=== PATIENT | female | born 1965 | race Caucasian/White ===

== ENCOUNTER → 2016-11-23 | Day surgery (SDC) | payer BC ==
[~2016-11-23] MED LIST: ALEVE220 M1 PO; GLUCOSAMINE500 M1 PO; OMEGA 3 FISH OI1 CAP PO
--- NOTE | ~2016-11-23 | OR ---
Unit #: [id number] #: [id number] Patient: VAMSI LOWRY [id number] [address] [place], [place] [address] [id number] O MR#: [id number] NAME: VAMSI LOWRY ROOM: Date of Procedure: 11/23/2016 Admission Date: 11/23/2016 Surgeon: Qasim Bailon M.D. : 1965 Attending Physician: Qasim Bailon M.D. Primary Care Physician: Bhavin Gilmore M.D. OPERATIVE REPORT PREOPERATIVE DIAGNOSES Low back pain, radiculopathy, spondylolisthesis, degenerative disk disease. POSTOPERATIVE DIAGNOSES Low back pain, radiculopathy, spondylolisthesis, degenerative disk disease. PROCEDURES PERFORMED Lumbar epidural steroid injection with intravenous sedation and fluoroscopic guidance for needle localization. INDICATIONS FOR PROCEDURE The patient is a 51-year-old female with back and right greater than left lower extremity pain that is bad now for almost 2 years. This has not settled with conservative treatment. Workup demonstrated most significantly spondylolisthesis, which was nonmobile, grade 1 to 2 at the L4-L5 level. There is significant degenerative disk and facet disease at this level as well. There was less severe facet disease at L3-L4 and L5-S1. There was degenerative disk disease in L4-5 and L5-S1 and left paracentral disk protrusion at L3-4. Plan is for a trial of epidural steroids based on history, pathology, and symptomatology. DESCRIPTION OF PROCEDURE The patient was placed in a seated position. Standard monitors were applied. 2 mg of Versed were given for sedation and anxiolysis, which were adequate. Vital signs remained stable. Sterile prep and drape then of the lumbar area was performed. The skin then at the L4 level was localized with 1% lidocaine. An 18-gauge VR1 needle was then advanced via loss of resistance technique and fluoroscopic guidance in toward the epidural space. The patient did not complain of significant pain or paresthesia during needle advancement. After confirming proper positioning, a dose of 80 mg of Depo-Medrol and 6 mL of 0.125% bupivacaine were deposited. Only about 5 mL of the mixture was used due to the fact the patient had discomfort during the injection component of the epidural into the patient's spinal canal. The patient was discharged to the recovery room in stable condition with symptoms resolving. She was discharged to the recovery room for repeat injection if needed. Dictated by... Qasim Bailon M.D. Unit #: [id number] #: [id number] Patient: VAMSI LOWRY LHP/ailin TD: 11/24/2016 02:09 JOB #: [id number] OPERATIVE REPORT Page 1 of 1 X Qasim Bailon MD X PROCEDURE OPERATIVE NOTE
== END | disposition home or self-care (01) ==
LOC: CCSC 07:31
DX: M51.16 Intervertebral disc disorders with radiculopathy, lumbar region (principal); M51.17 Intervertebral disc disorders with radiculopathy, lumbosacral region; M43.16 Spondylolisthesis, lumbar region
CPT/HCPCS: J1040; J2250

== ENCOUNTER → 2016-12-07 | Day surgery (SDC) | payer BC ==
--- NOTE | ~2016-12-07 | OR ---
Unit #: [id number] #: [id number] Patient: VAMSI LOWRY [id number] [address] [place], [place] [address] [id number] O MR#: [id number] NAME: VAMSI LOWRY ROOM: Date of Procedure: 12/07/2016 Admission Date: 12/07/2016 Surgeon: Qasim Bailon M.D. : 1965 Attending Physician: Qasim Bailon M.D. Primary Care Physician: Bhavin Gilmore M.D. OPERATIVE REPORT PREOPERATIVE DIAGNOSES 1. Back pain. 2. Radiculopathy. 3. Spondylolisthesis. 4. Degenerative disk disease. POSTOPERATIVE DIAGNOSES 1. Back pain. 2. Radiculopathy. 3. Spondylolisthesis. 4. Degenerative disk disease. PROCEDURE PERFORMED Lumbar epidural steroid injection with intravenous sedation and fluoroscopic guidance for needle localization. INDICATIONS FOR PROCEDURE The patient is a 51-year-old female, who presented with nearly 2-year history of worsening back and right greater than left lower extremity pain that did not settle with conservative treatment. She had pain, paresthesia, and numbness. Workup demonstrated a grade 1 to 2 nonmobile spondylolisthesis at L4-L5, significant degenerative disk disease at L3-L4 through L5-S1, left-sided paracentral disk protrusion at L3-L4, significant facet disease most severe at L4-L5 and also present at L3-L4 and L5-S1. Initial epidural steroid injection done 2 weeks ago resulted tremendous reduction in all components of her pain. She has been much more physically active, then able to hike, exercise and do many things she admitted onto for the last 2 years. Based on a good initial response, we are going to proceed with a second injection at this point. We will then hold any further injections until after we follow up in several weeks' time at the pain Center. DESCRIPTION OF PROCEDURE The patient was placed in a seated position. Standard monitors were applied. 2 mg of Versed were given for sedation and anxiolysis, which were adequate. Vital signs remained stable. Sterile prep and drape then of the lumbar area was performed. The skin initially at the L4-L5 level was localized with 1% lidocaine. An 18-gauge IntelliGeneScan needle was then advanced via loss of resistance technique and fluoroscopic guidance in toward the epidural space. Upon entering the epidural space, the patient did have discomfort with the injection of the dye. This was quite Unit #: [id number] #: [id number] Patient: VAMSI LOWRY. She had some pain last time as well, so decision was made with needle up to the L3-L4 level again via loss of resistance technique. After confirming proper positioning with fluoroscopy and radiographic contrast, a dose of 80 mg of Depo-Medrol and 4 mL of 0.125% bupivacaine were deposited. The patient had some discomfort here also, but not as bad as it was with initial injection. She tolerated the procedure otherwise well and was discharged to the recovery room in stable condition. Dictated by... Ruben Chris/ailin TD: 12/07/2016 22:27 JOB #: [id number] OPERATIVE REPORT Page 1 of 1 X Qasim Bailon MD X PROCEDURE OPERATIVE NOTE
== END | disposition home or self-care (01) ==
LOC: CCSC 07:37
DX: M51.16 Intervertebral disc disorders with radiculopathy, lumbar region (principal); M43.16 Spondylolisthesis, lumbar region
CPT/HCPCS: J1040; J2250